=== PATIENT | male | born 1970 | race Caucasian/White ===

== ENCOUNTER 2019-05-15 13:05 | Emergency (ER) | payer MEDICAID ==
[~2019-05-15] VITALS: Ht 193 cm; Wt 114.0 kg
[2019-05-15 13:33] LABS: CLARITY,URINE CLEAR (Clear); COLOR,URINE YELLOW (Yellow); GLUCOSE, URINE NEGATIVE (Neg); KETONES,URINE NEGATIVE (Neg); LEUKOCYTE ESTERASE ,URINE NEGATIVE (Neg); NITRITES, URINE NEGATIVE (Neg); OCCULT BLOOD,URINE MODERATE (Neg); PH,URINE 5.5 (4.8-8.0); PROTEIN,URINE 30 mg/dl (Neg); UROBILINOGEN,URINE 0.2 E.U/dL (0.2-1.0)
[2019-05-15 13:34] LABS: UA COLLECTION TYPE URINAL
[2019-05-15 13:52] LABS: MUCUS STRANDS MANY /LPF (Neg); SQUAMOUS EPITHELIAL CELL,UR FEW /LPF (FEW)
[2019-05-15 13:53] LABS: HYALINE CASTS 0-3 /LPF (NEGATIVE)
[2019-05-15 13:54] LABS: TRANSITIONAL EPI CELLS,URINE FEW /HPF
[2019-05-15 13:55] LABS: RBC,URINE 0-2 /HPF (0-2); WBC,URINE 0-4 /HPF (0-4)
[2019-05-15 14:01] LABS: CAL OXALATE CRYSTALS 2+ /HPF (NEGATIVE)
[2019-05-15 14:02] LABS: BACTERIA,URINE NONE SEEN /HPF (Neg)
[2019-05-15 14:06] LABS: BASOPHILS % (AUTO) 0.3 % (0-1); EOSINOPHILS % (AUTO) 0.2 % (0-6); HEMATOCRIT 45.2 % (42.0-52.0); HEMOGLOBIN 15.7 g/dl (14.0-17.9); LYMPHOCYTES # (AUTO) 1.9 X10'3 (1.1-4.8); MEAN CORPUSCULAR HEMOGLOBIN 30.3 PG (27.0-31.0); MEAN CORPUSCULAR HGB CONC 34.6 g/dL (33.0-36.5); MEAN CORPUSCULAR VOLUME 87.6 FL (78-98); MEAN PLATELET VOLUME 7.3 FL (7.4-10.4); MONOCYTES # (AUTO) 0.6 X10'3 (0-0.9); MONOCYTES % (AUTO) 5.8 % (2-12); NEUTROPHILS % (AUTO) 75.7 % (42-75); PLATELET COUNT 265 X10'3 (140-440); RED BLOOD COUNT 5.17 X10'6 (4.70-6.10); RED CELL DISTRIBUTION WIDTH 13.7 % (11.5-14.5); WHITE BLOOD COUNT 10.5 X10'3 (4.5-11.0)
[2019-05-15 14:17] LABS: ALANINE AMINOTRANSFERASE 79 U/L (12-78); ALBUMIN 4.1 G/DL (3.4-5.0); ALBUMIN/GLOBULIN RATIO 1.1 (1.1-1.5); ALKALINE PHOSPHATASE 79 IU/L (46-116); AMYLASE 77 U/L (25-115); ANION GAP 11 (8-16); ASPARTATE AMINO TRANSFERASE 26 U/L (10-37); BILIRUBIN,TOTAL 0.4 MG/DL (0.1-1.0); BLOOD UREA NITROGEN 15 MG/DL (7-18); BUN/CREATININE RATIO 10.6 (5.4-32.0); CHLORIDE 107 MMOL/L (99-107); CREATININE 1.42 MG/DL (0.60-1.10); GLUCOSE 125 MG/DL (70-104); LIPASE 258 U/L (73-393); SODIUM 141 MMOL/L (135-145); TOTAL CARBON DIOXIDE 22.7 MMOL/L (24-32); TOTAL PROTEIN 7.7 G/DL (6.4-8.2); eGFR 53 ML/MIN
[2019-05-15 14:23] LABS: CALCIUM 9.3 MG/DL (8.5-10.1)
[2019-05-15 14:24] LABS: POTASSIUM 3.9 MMOL/L (3.5-5.1)
[2019-05-15] MEDS ORDERED: ondansetron/PF 4mg/2ml inj IV ONE ×2 (14:25→15:00)
[2019-05-15] MEDS ORDERED: normal saline 1000ML IV soln IVB ONE (14:25)
[2019-05-15] MEDS ORDERED: ketorolac trometh. 30mg/ml inj. IV ONE (14:25)
[2019-05-15] MEDS ORDERED: morphine 4 MG/ML inj SYRINge IV ONE (15:00)
--- NOTE | 2019-05-15 15:48 | NUR ---
Dr. Harris is at the bedside at this time.
[2019-05-15] MEDS ORDERED: HYDR-4384 PO (15:52)
[2019-05-15] MEDS ORDERED: FLO0.4C PO (15:52)
[2019-05-15] MEDS ORDERED: IBUP-1984 PO (15:52)
--- NOTE | 2019-05-15 16:44 | NUR ---
Pt reports the pain is worse than when he came and he reports he wants to stay and have the stone surgically removed. Dr. Story notified. Pt's chart placed back on the board and awaiting further evaluation.
[2019-05-15] MEDS ORDERED: SERT25TA5 (17:48)
[2019-05-15] MEDS ORDERED: PANT40TA4 (17:48)
[2019-05-15] MEDS ORDERED: ACET-812 PO (17:48)
--- NOTE | 2019-05-15 18:30 | NUR ---
Pt is aware we are awaiting further orders or disposition due to need to consult with urologist.
[2019-05-15] MEDS ORDERED: HYDROcodone/acetaminophen 5mg/325mg tablet PO ONE (18:45)
[2019-05-15 19:00] VITALS: BP 141/91
== END 2019-05-15 19:02 | disposition home or self-care (01) ==
LOC: ER 13:05
DX: N20.0 Calculus of kidney (principal); Z90.49 Acquired absence of other specified parts of digestive tract; Z98.890 Other specified postprocedural states; Z88.5 Allergy status to narcotic agent; Z79.899 Other long term (current) drug therapy
CPT/HCPCS: 36415; 74176; 80053; 81001; 82150; 83690; 85025; 96374; 96375; 99284; J1885; J2270; J2405; J7030

== ENCOUNTER 2019-06-28 20:36 | Emergency (ER) | payer MEDICAID ==
[~2019-06-28] VITALS: Ht 190.5 cm; Wt 113.6 kg
[~2019-06-28 20:36] MED LIST: ACET-812 PO; PANT40TA4; SERT25TA5
[2019-06-28 20:42] VITALS: BP 158/106
[2019-06-28] MEDS ORDERED: LIDOcaine 2% 10ml TOPICAL JELLY (Urojet) MM ONE ×3 (20:55→21:30)
[2019-06-28] MEDS ORDERED: cephalexin 250mg capsule PO ONE (22:10)
[2019-06-28] MEDS ORDERED: CEPH500C5 PO (22:29)
== END 2019-06-28 22:42 | disposition home or self-care (01) ==
LOC: ER 20:37
DX: N13.9 Obstructive and reflux uropathy, unspecified (principal); R31.9 Hematuria, unspecified; Z87.442 Personal history of urinary calculi; Z90.49 Acquired absence of other specified parts of digestive tract; Z98.890 Other specified postprocedural states; Z88.5 Allergy status to narcotic agent
CPT/HCPCS: 99284

== ENCOUNTER 2020-04-16 18:47 | Emergency (ER) | payer MEDICAID ==
[~2020-04-16] VITALS: Ht 193 cm; Wt 120.5 kg
[~2020-04-16 18:47] MED LIST changes: +CEPH500C5 PO; -PANT40TA4; +PANT40TA54
[2020-04-16 20:52] LABS: BASOPHILS % (AUTO) 0.3 % (0-1); EOSINOPHILS # (AUTO) 0.1 X10'3 (0-0.9); EOSINOPHILS % (AUTO) 0.6 % (0-6); HEMATOCRIT 49.2 % (42.0-52.0); HEMOGLOBIN 16.9 g/dl (14.0-17.9); LYMPHOCYTES # (AUTO) 1.2 X10'3 (1.1-4.8); LYMPHOCYTES % (AUTO) 8.9 % (21-51); MEAN CORPUSCULAR HEMOGLOBIN 29.8 PG (27.0-31.0); MEAN CORPUSCULAR HGB CONC 34.3 g/dL (33.0-36.5); MEAN CORPUSCULAR VOLUME 87.1 FL (78-98); MEAN PLATELET VOLUME 7.7 FL (7.4-10.4); MONOCYTES # (AUTO) 1.6 X10'3 (0-0.9); MONOCYTES % (AUTO) 11.4 % (2-12); NEUTROPHILS # (AUTO) 10.9 X10'3 (1.8-7.7); NEUTROPHILS % (AUTO) 78.8 % (42-75); PLATELET COUNT 466 X10'3 (140-440); RED BLOOD COUNT 5.65 X10'6 (4.70-6.10); RED CELL DISTRIBUTION WIDTH 14.3 % (11.5-14.5); WHITE BLOOD COUNT 13.8 X10'3 (4.5-11.0)
[2020-04-16 21:02] LABS: D-DIMER 1.19 MG/L FEU (0-0.50)
[2020-04-16] MEDS ORDERED: normal saline 1000ML IV soln IVB ONE (21:15)
[2020-04-16 23:36] LABS: ALANINE AMINOTRANSFERASE 40 U/L (12-78); ALBUMIN 1.4 G/DL (3.4-5.0); ALBUMIN/GLOBULIN RATIO 0.6 (1.1-1.5); ALKALINE PHOSPHATASE 49 IU/L (46-116); ANION GAP 11 (8-16); ASPARTATE AMINO TRANSFERASE 28 U/L (10-37); BILIRUBIN,TOTAL 0.3 MG/DL (0.1-1.0); BLOOD UREA NITROGEN 6 MG/DL (7-18); BUN/CREATININE RATIO 10.9 (5.4-32.0); CHLORIDE 117 MMOL/L (99-107); CREATININE 0.55 MG/DL (0.60-1.10); GLUCOSE 65 MG/DL (70-104); SODIUM 145 MMOL/L (135-145); TOTAL CARBON DIOXIDE 16.6 MMOL/L (24-32); TOTAL PROTEIN 3.9 G/DL (6.4-8.2); eGFR > 90 ML/MIN
[2020-04-16 23:52] LABS: CALCIUM < 5.0 MG/DL (8.5-10.1); POTASSIUM 2.3 MMOL/L (3.5-5.1)
[2020-04-17 00:05] VITALS: BP 139/105
[2020-04-17] MEDS ORDERED: iohexol 350MG/ML 100ml bottle IV ONE (00:17)
[2020-04-17 00:34] LABS: ALANINE AMINOTRANSFERASE 74 U/L (12-78); ALBUMIN 2.6 G/DL (3.4-5.0); ALBUMIN/GLOBULIN RATIO 0.6 (1.1-1.5); ALKALINE PHOSPHATASE 86 IU/L (46-116); ANION GAP 10 (8-16); ASPARTATE AMINO TRANSFERASE 51 U/L (10-37); BILIRUBIN,TOTAL 0.7 MG/DL (0.1-1.0); BLOOD UREA NITROGEN 9 MG/DL (7-18); BUN/CREATININE RATIO 8.8 (5.4-32.0); CALCIUM 8.1 MG/DL (8.5-10.1); CHLORIDE 104 MMOL/L (99-107); CREATININE 1.02 MG/DL (0.60-1.10); GLUCOSE 95 MG/DL (70-104); POTASSIUM 3.9 MMOL/L (3.5-5.1); SODIUM 138 MMOL/L (135-145); TOTAL CARBON DIOXIDE 23.6 MMOL/L (24-32); TOTAL PROTEIN 6.9 G/DL (6.4-8.2); eGFR 77 ML/MIN
[2020-04-17 00:36] LABS: TROPONIN I < 0.04 NG/ML (0.0-0.05)
== END 2020-04-17 02:20 | disposition home or self-care (01) ==
LOC: ER 18:47
DX: U07.1 COVID-19 (principal); R06.02 Shortness of breath; R53.83 Other fatigue; R19.7 Diarrhea, unspecified; K21.9 Gastro-esophageal reflux disease without esophagitis; Z87.442 Personal history of urinary calculi; Z90.89 Acquired absence of other organs; Z98.890 Other specified postprocedural states; Z88.8 Allergy status to other drugs, medicaments and biological substances; Z79.2 Long term (current) use of antibiotics; Z79.899 Other long term (current) drug therapy
CPT/HCPCS: 36415; 71045; 71275; 80053; 83605; 84145; 84484; 85025; 85379; 85610; 87040; 87502; 87503; 87635; 93005; 96360; 99285; C9803; J7030; Q9967; U0003

== ENCOUNTER 2023-12-14 13:57 | Outpatient (CLI) | payer MEDICAID ==
[~2023-12-14 13:57] MED LIST changes: -CEPH500C5 PO; +SERT-432; -SERT25TA5
== END 2023-12-14 23:59 | disposition home or self-care (01) ==
LOC: MRI 13:57
PROVIDERS: ATTEND Orthopaedic Surgery
DX: S46.201D Unspecified injury of muscle, fascia and tendon of other parts of biceps, right arm, subsequent encounter (principal); Z98.890 Other specified postprocedural states; X58.XXXD Exposure to other specified factors, subsequent encounter
CPT/HCPCS: 73221

== ENCOUNTER 2025-02-01 15:50 | Emergency (ER) | payer MEDICAID ==
[~2025-02-01] VITALS: Ht 195.6 cm; Wt 136.0 kg
[2025-02-01 15:57] VITALS: PULSE 117; TEMP 98.4; O2SAT 96
[2025-02-01] MEDS: ketorolac trometh 15mg/ml vial 15 MG/ML ML IM ONE (16:22)
--- NOTE | 2025-02-01 16:26 | RADIOLOGY REPORT ---
CLINICAL INDICATION: WRIST PAIN TECHNIQUE: 3 radiographic views of the left wrist were obtained. Comparison: None FINDINGS/IMPRESSION: There is no evidence of acute fracture or dislocation. The visualized joint space is well maintained. The alignment is anatomical. There is no radiopaque foreign body.
[2025-02-01] MEDS ORDERED: HYDR-3972 PO (16:40)
[2025-02-01] MEDS: HYDROcodone/acetaminophen 10/325mg tab PO ONE (16:43)
--- NOTE | 2025-02-01 16:43 | Physician Documentation ---
History of Present Illness ~ Chief Complaint: Wrist pain Stated Complaint: BROKEN WRIST Time Seen by MD: 16:25 Primary Medical Doctor: marylou pino Source: patient Mode of Arrival: POV Exam Limitations: no limitations HPI Chief Complaint: Fall, left wrist injury Caveat: None Independent Historians: None History of Present Illness: Patient is a 54-year-old man that fell landing on his outstretched left hand. Patient complains of severe left wrist pain in the inability to flex or extend his wrist. Patient denies any other injuries. Pain is constant and worse with the attempts at movement. Review of systems: All systems were reviewed and are negative except for what is indicated in the history of present illness. Past Medical History: HTN, HLD, type 2 diabetes Past Surgical History: Noncontributory Social History: No tobacco use, no alcohol use, no drug use Medications: Reviewed as documented Nursing Notes Allergies: Reviewed as documented in Nursing Notes Tetanus within 5 years: No Medication Reconciliation Allergies: Coded Allergies: hydromorphone (Verified Allergy, Unknown, 02/01/25) Scheduled Acetaminophen (Tylenol Extra Strength), 2 TABLET PO Q6H, (Reported) Scheduled PRN Hydrocodone Bit/Acetaminophen (Hydrocodon-Acetaminophn 10-325 tablet), 1 TAB PO TID PRN for pain Miscellaneous Medications Pantoprazole Sodium (Pantoprazole Sodium), (Reported) Sertraline HCl (Sertraline HCl), (Reported) Past Medical History Past Medical History: GERD, Kidney Stones Past Surgical History: abdominal surgery, appendectomy Alcohol Use: None Drug Use: none Lives In: Home Review of Systems All Other Systems at this time: Reviewed and Negative ROS Patient denies any other acute symptoms other than above. All other systems are negative Physical Exam Vital Signs: RN Vital Signs have been reviewed: Yes, Temperature: 98.4, Source: Oral, Heart Rate: 117, Respiratory Rate: 16, BP: 182/120, Pulse Oximetry: 96, Weight: 136.000 Oxygen Flow Rate: 0 Pulse Oximetry Reflects: adequate oxygenation Physical Exam General Appearance: Mild Distress Neck: supple, normal ROM, trachea midline Pulmonary: No respiratory distress, CTA, BS equal Cardiac: RRR, no murmur, rub or gallop, Extremities: normal ROM, no swelling, non-tender except for the left wrist extreme decreased range of motion. Diffuse tenderness. No snuffbox tenderness. Normal range of motion of the fingers. Skin: intact, dry, warm, no rashes Neuro: AAOx3, speech is clear, normal gait Psych: normal affect, good eye contact, no apparent hallucination, normal speech Progress Results/Orders Results/Orders Orders - CHASE GARCIA MD Ortho Orders (02/01/25 ) Completed Orders - CHASE GARCIA MD Ketorolac Trometh 15mg/Ml Vial (Toradol (02/01/25 16:05) Hydrocodone/Apap 10/325 (A[place]worth 10/325mg (02/01/25 16:40) Medications Received in ER Medications (Trade) Dose Ordered Sig/Jillian Route PRN Reason Start Time Stop Time Status Last Admin Dose Admin (Toradol injection) 15 mg ONCE ONCE IM 02/01/25 16:05 02/01/25 16:06 DC 02/01/25 16:51 15 MG Vital Signs 02/01/25 02/01/25 15:57 16:52 Temp 98.4 Pulse 117 Resp 18 B/P (MAP) 182/120 161/116 Pulse Ox 96 O2 Flow Rate 0 Medical Decision Making Findings Differential diagnosis includes but is not limited to: Radius fracture, ulnar fracture, cup of fracture, dislocation, scaphoid fracture Wrist x-rays, three views, indication: Trauma Independent interpretation: No evidence of fractures or dislocations. Emergency department course/medical decision-making: Patient has likely left wrist sprain. There was no radiographical evidence for fracture or dislocation. Patient is placed in a splint. Patient is given a prescription for Ainsworth. Patient to apply ice packs. Test results and treatment plan reviewed with the patient. Patient is stable for discharge. Departure Time of Disposition: 16:38 Disposition: 01 HOME / SELF CARE / HOMELESS Impression: Primary Impression: Left wrist sprain Qualified Codes: S63.502A - Unspecified sprain of left wrist, initial encounter Discharge Instructions: Wrist Sprain, Adult Additional Instructions: APPLY ICE PACKS AND TAKE ADVIL FOR PAIN. NORCO FOR SEVERE PAIN Prescriptions Hydrocodone Bit/Acetaminophen (Hydrocodon-Acetaminophn 10-325 tablet) 10mg- 325mg Tablet 1 TAB PO TID PRN for pain, #10 TAB Prov: CHASE GARCIA MD 02/01/25 Education Educated: Patient Educated regarding: diagnosis, treatment, need for follow up Signature Scribe Signature: No estevan Attestation: No polyibCHASE Walton MD Feb 01, 2025 16:43
[2025-02-01 16:52] VITALS: BP 161/116
== END 2025-02-01 16:54 | disposition home or self-care (01) ==
LOC: ER 15:51
DX: S63.592A Other specified sprain of left wrist, initial encounter (principal); I10 Essential (primary) hypertension; E78.5 Hyperlipidemia, unspecified; K21.9 Gastro-esophageal reflux disease without esophagitis; E11.9 Type 2 diabetes mellitus without complications; Z90.49 Acquired absence of other specified parts of digestive tract; Z88.5 Allergy status to narcotic agent; Z87.442 Personal history of urinary calculi; W18.30XA Fall on same level, unspecified, initial encounter; Y93.89 Activity, other specified; Y92.89 Other specified places as the place of occurrence of the external cause; Y99.8 Other external cause status
CPT/HCPCS: 29125; 73110; 96372; 99284; J1885; 29105